=== PATIENT | male | born 2005 | race Two or more races ===

== ENCOUNTER 2024-12-27 19:16 | Outpatient (REF) | payer OTHER, SELFPAY ==
--- NOTE | ~2024-12-27 | MR_ITS ---
EXAMINATION: MRI RIGHT KNEE WITHOUT CONTRAST HISTORY: PAIN SPRAIN OF MEDIAL COLLATERAL LIGAMENT COMPARISON: There are no prior studies available for comparison. TECHNIQUE: Coronal T1 and fat-suppressed proton density, sagittal proton density and fat-suppressed proton density, and axial fat suppressed T2 weighted MR images of the right knee were obtained. FINDINGS: Bone marrow: There is a focus of bone marrow edema involving the posterior aspect of the lateral femoral condyle, consistent with a bone contusion. Joint effusion: There is a moderate joint effusion. Tovar's cyst: There is no Tovar's cyst. Articular cartilage: There are cartilage fissures involving the medial patellar facet. The articular cartilage is otherwise unremarkable. Muscles/soft tissues: The visualized muscles demonstrate normal signal intensity. Anterior cruciate ligament: Intact Posterior cruciate ligament: Intact Medial collateral ligament: There is disruption of the medial collateral ligament at its origin consistent with a high-grade tear. There is surrounding edema. Lateral collateral ligament: Intact Medial meniscus: Intact Lateral meniscus: Intact Flexor mechanism: The popliteus, gastrocnemius, and hamstring tendons are intact. Quadriceps tendon: Intact Patellar tendon: Intact Patellar retinacula: Intact MR/MR knee RT wo con IMPRESSION: 1. Bone contusion involving the posterior aspect of the lateral femoral condyle. Moderate joint effusion. 2. High-grade medial collateral ligament tear. 3. Cartilage fissures involving the medial patellar facet. Electronically signed by: Ezequiel Rutherford MD 12/28/2024 07:19 AM EDT
--- OUTSIDE RECORDS SUMMARY | 2024-12-27 19:22 | XMS_ITS | Clinical Summary ---
Author Organization [facility] Address [address] [address] Phone Care Team Providers Care Economic Development Specialist Name Role Phone Mary Ann Cleveland NP Primary Care Provi danna Encounters Date Type Department Care Team Description 12/14/2024 3:30 PM EDT Office Visit [facility] at [address] [phone] Steve Hernández PA-C Sprain of medial collateral ligament of right knee, initial encounter (Primary Dx); Rupture of anterior cruciate ligament of right knee, initial encounter 12/14/2024 Ancillary Orders [facility]Outside Imaging [address] [place] [address] Unknown, MD Kristina 12/13/2024 - 12/13/2024 11:59 PM EDT Hospital Encounter [facility]Outside [facility] [address] [place] [address] Unknown, UnknownMD Discharge Disposition: Home or Self Care from Last 3 Months Social History Tobacco Use Types Packs/Day Years Used Date Smoking Tobacco: Never Assessed Education Answer Date Recorded Are you interested in more education? Not on huang e 12/14/2024 Are you concerned about learning? Not on file 12/14/2024 No 12/14/2024 No 12/14/2024 Digital Access Answer Date Recorded No 12/14/2024 No 12/14/2024 Reliable internet access at home? Not on file 12/14/2024 Device with a working camera? Not on file Sex and Gender Information Value Date Recorded Sex Assigned at Not on file Legal Sex Male 11:30 AM EDT Gender Identity Not on file Sexual Orientation Not on file Plan of Treatment Upcoming Encounters Date Type Department Care Team (Late st Contact Info) Description 12/14/2024 Procedure Pass [address] [address] 01/15/2025 9:05 PM EDT Appointment [address] [address] Steve Hernández PA-C [address] [place] [address] Orthopedics & Sports Medicine, [place] [address] Health Maintenance Due Date Last Done Comments Adult Td,Tdap Booster 2003 MMR VACCINES (1 of 1 - Stand kevin series) 10/04/2004 COMBINED DTaP,Tdap,Td (1 - Tdap) 10/04/2010 DEPRESSION SCREENING 2015 SMOKING Hx and SMOKELESS TOB ACCO SCREENING 10/04/2016 HPV VACCINES (1 - Male 3-dos e series) 10/04/2018 MENINGOCOCCAL VACCINES (B) ( 1 of 2 - Standard) 2019 ADOLESCENT UNIVERSAL LIPID SCREENING 10/04/2020 HEPATITIS C SCREENING 10/04/2021 HIV ONE-TIME SCREENING (18-6 5 YEARS) 10/04/2021 INFLUENZA VACCINE (#1) 2024 COVID-19 VACCINE (1 - 2023-2 5 season) 2024 HEPATITIS A VACCINES Aged Out No long er eligible based on patient's age to complete this topic HIB VACCINES Aged Out No longer eligi ble based on patient's age to complete this topic MENINGOCOCCAL VACCINES (ACWY) Aged Out No longer eligible based on patient's age to complete this topic PNEUMOCOCCAL VACCINES (0-49 years) Aged Out No longer eligible based on patient's age to complete this topic Medical Devices Not on file Procedures Procedure Name Priority Date/Time Associated Diagnosis Comments XR LOWER EXTREMITY OUTSIDE (NO INTERPRETATION) Routine 12/13/2024 12:00 AM EDT from Last 3 Months Results * XR Lower Extremity Outside (No Interpretation) (12/13/2024 12:00 AM EDT) Narrative SYSTEMGENERATED, DOCUMENTATION - 12/14/2024 3:28 PM EDT This study is for PACS storage only and not for interpretation. us Unknown Unknown MD [facility] W/OUT INT ERPRETATION Final Result from Last 3 Months Insurance [facility] A[facility] [facility] C3 ACO [facility] C3 ACO Care Teams Economic Development Specialist Relationship Specialty Start Date End Date Ann Hernandez NP [address] [place] [address] PCP - General Nurse Practitioner 12/17/24 Additional Source Comments The information contained in this document represents components of the legal health record. It is not the complete legal health record.[facility]
== END 2024-12-27 19:17 | disposition home or self-care (01) ==
LOC: HO.MRI 19:16
PROVIDERS: Visit Provider Physician Assistant Surgical
DX: S83.411D Sprain of medial collateral ligament of right knee, subsequent encounter (principal)
CPT/HCPCS: 73721

== ENCOUNTER → 2024-12-27 19:23 | Outpatient (BNV) | payer OTHER, SELFPAY | PROVIDERS: Visit Provider Radiology Diagnostic Radiology | DX: M25.461 Effusion, right knee (principal); S83.411A Sprain of medial collateral ligament of right knee, initial encounter | CPT/HCPCS: 73721 ==